=== PATIENT | male | born 1985 | race African-American/Black ===

== ENCOUNTER 2018-07-14 01:40 | Emergency (ER) | payer SELFPAY ==
[~2018-07-14] VITALS: Ht 175.3 cm; Wt 79.5 kg
[2018-07-14 01:43] VITALS: Ht 175.3 cm; Wt 79.5 kg
[2018-07-14 03:03] LABS: BASOPHILS 0.6 % (0-2); EOSINOPHILS 2.1 % (0-7); HEMATOCRIT 48.5 % (42.0-54.0); HEMOGLOBIN 17.1 g/dL (13.5-17.5); MCHC 35.3 g/dL (31.0-37.0); MEAN PLATELET VOLUME 11.8 fL (7.4-10.4); MONOCYTES 10.7 % (2-11); NEUTROPHILS 63.6 % (40-80); PLATELET COUNT 158 10x3/uL (130-400); RBC 5.51 10x6/uL (4.20-6.10); WBC 7.2 10x3/uL (4.8-10.8)
[2018-07-14] MEDS ORDERED: PROMETHAZINE W473 ML PO (03:05)
[2018-07-14] MEDS ORDERED: ZPAK PO (03:05)
[2018-07-14] MEDS ORDERED: ALBUTEROL SULF8.5 GM INH (03:05)
[2018-07-14 03:23] LABS: ALKALINE PHOSPHATASE 72 U/L (46-116); ALT (SGPT) 29 U/L (10-68); CALC OSMOLALITY 276 mosm/kg (275-300); CALCIUM 8.9 mg/dL (8.5-10.1); CARBON DIOXIDE 26.7 mmol/L (21.0-32.0); CHLORIDE - SERUM 102 mmol/L (98-107); CREATININE - SERUM 1.2 mg/dL (0.6-1.3); GLUCOSE 99 mg/dL (74-106); PROTEIN - SERUM 8.5 g/dL (6.4-8.2); SODIUM 138 mmol/L (136-145); UREA NITROGEN 14 mg/dL (7-18); eGFR NON AFRICAN AMERICAN 75 mL/min (90-120)
[2018-07-14 03:29] VITALS: BP 137/78
== END 2018-07-14 03:30 | disposition home or self-care (01) ==
LOC: D.ER 01:40
PROVIDERS: Family Medicine
DX: J40 Bronchitis, not specified as acute or chronic (principal); R09.89 Other specified symptoms and signs involving the circulatory and respiratory systems; M79.18 Myalgia, other site; R50.9 Fever, unspecified; F17.200 Nicotine dependence, unspecified, uncomplicated

== ENCOUNTER 2019-05-05 06:56 | Emergency (ER) | payer SELFPAY ==
[~2019-05-05] VITALS: Ht 175.3 cm; Wt 72.7 kg
[~2019-05-05 06:56] MED LIST: ALBUTEROL SULF8.5 GM INH; PROMETHAZINE W473 ML PO; ZPAK PO
[2019-05-05 07:03] VITALS: Ht 175.3 cm; Wt 72.7 kg
[2019-05-05 07:41] LABS: APPEARANCE CLEAR (CLEAR); COLOR YELLOW (YELLOW); GLUCOSE NEGATIVE (NEGATIVE); KETONE NEGATIVE (NEGATIVE); NITRITE NEGATIVE (NEGATIVE); PROTEIN TRACE mg/dL (NEGATIVE)
[2019-05-05 07:42] LABS: BASOPHILS 0.2 % (0-2); EOSINOPHILS 0.1 % (0-7); HEMATOCRIT 45.6 % (42.0-54.0); HEMOGLOBIN 15.6 g/dL (13.5-17.5); IMMATURE GRANULOCYTES 0.4 % (0-5); LYMPHOCYTES 11.1 % (15-50); MCHC 34.2 g/dL (31.0-37.0); MCV 90.7 fL (80.0-100.0); MEAN PLATELET VOLUME 11.5 fL (7.4-10.4); MONOCYTES 6.3 % (2-11); NEUTROPHILS 81.9 % (40-80); PLATELET COUNT 195 10x3/uL (130-400); RBC 5.03 10x6/uL (4.20-6.10); RDW 13.5 % (11.5-14.5); WBC 15.1 10x3/uL (4.8-10.8)
[2019-05-05 07:42] LABS: BILIRUBIN NEGATIVE (NEGATIVE)
[2019-05-05 07:43] LABS: CALC OSMOLALITY 273 mosm/kg (275-300); CALCIUM 9.1 mg/dL (8.5-10.1); CARBON DIOXIDE 25.5 mmol/L (21.0-32.0); CHLORIDE - SERUM 102 mmol/L (98-107); CREATININE - SERUM 1.1 mg/dL (0.6-1.3); GLUCOSE 102 mg/dL (74-106); POTASSIUM - SERUM 3.7 mmol/L (3.5-5.1); SODIUM 137 mmol/L (136-145); UREA NITROGEN 12 mg/dL (7-18); eGFR NON AFRICAN AMERICAN 82 mL/min (90-120)
[2019-05-05 07:49] LABS: ALBUMIN 3.9 g/dL (3.4-5.0); ALKALINE PHOSPHATASE 66 U/L (46-116); ALT (SGPT) 23 U/L (10-68); BILIRUBIN - TOTAL 0.66 mg/dL (0.2-1.3)
[2019-05-05] MEDS ORDERED: ZPAK PO (08:02)
[2019-05-05] MEDS ORDERED: ACETAMINOPHEN500 M1 PO (08:02)
[2019-05-05] MEDS ORDERED: MEDROL DOSE PACK4 MG PO (08:02)
[2019-05-05 08:03] LABS: AMYLASE - SERUM 89 U/L (25-115); LIPASE 119 U/L (73-393)
[2019-05-05] MEDS ORDERED: ALBUTEROL SULF8.5 GM INH (08:03)
[2019-05-05 08:25] VITALS: BP 125/65
== END 2019-05-05 08:25 | disposition home or self-care (01) ==
LOC: D.ER 06:56
PROVIDERS: Family Medicine
DX: J20.9 Acute bronchitis, unspecified (principal); J45.901 Unspecified asthma with (acute) exacerbation; R11.2 Nausea with vomiting, unspecified; Z72.0 Tobacco use